=== PATIENT | female | born 1975 | race Caucasian/White ===

== ENCOUNTER 2017-05-08 15:16 | Outpatient (CLI) | payer BC ==
--- NOTE | 2017-05-08 16:52 | RAD ---
LEFT HIP 2 VIEWS: Date: 05/08/17 CLINICAL HISTORY: Left hip pain. FINDINGS: There is no fracture or dislocation of the left hip. An intrauterine device is seen overlying the pel vis. IMPRESSION: No acute osseous abnormality of the left hip. POS: SAMANTA
== END 2017-05-08 15:17 | disposition home or self-care (01) ==
LOC: SCSRAD 15:16
PROVIDERS: ATTEND Family Medicine
DX: M25.552 Pain in left hip (principal)

== ENCOUNTER 2017-05-22 09:35 | Outpatient (CLI) | payer BC ==
[2017-05-22 10:32] LABS: ALT (SGPT) 16 U/L (8-55); AST (SGOT) 22 U/L (5-34); Albumin 4.2 g/dL (3.5-5.0); Alkaline Phosphatase 38 U/L (40-150); Anion Gap 11 mmol/L (10-20); BUN (Urea Nitrogen) 15 mg/dL (7.0-18.7); Bilirubin, Total 1.4 mg/dL (0.2-1.2); Calc. Creatinine Clearance 0 mL/min (70-130); Calcium 9.2 mg/dL (7.8-10.44); Carbon Dioxide 28 mmol/L (22-29); Cardiac Risk 2.5 (Less than 4.5); Chloride 105 mmol/L (98-107); Cholesterol 180 mg/dl (< 200 Desired); Estimated GFR-MDRD 83; Globulin 3.2 g/dL (2.4-3.5); Glucose 96 mg/dL (70-105); HDL Cholesterol 72 mg/dL (>60 Neg Risk); LDL Cholesterol, Calculated 99 mg/dL; Protein, Total 7.4 g/dL (6.0-8.3); Sodium 140 mmol/L (136-145); Triglycerides 43 mg/dL (Less than 150)
[2017-05-22 11:02] LABS: Free T4 (Free Thyroxine) 1.13 ng/dL (0.70-1.48); Thyroid Stimulating Hormone 1.1621 uIU/mL (0.35-4.94)
--- NOTE | 2017-05-22 14:26 | MMO ---
MAMMOGRAM DIGITAL SCREENING BILATERAL: DATE: 05-22-17 HISTORY: 41-year-old female for routine baseline bilateral screening mammogram. COMPARISON: None available. TECHNIQUE: Digital mammographic views. Computer-aided detection (CAD) utilized. FINDINGS: The breasts are extremely dense, which lowers the sensitivity of mammography. There is no evidence of suspicious mass, suspicious calcifications, or architectural distortion. IMPRESSION: 1) BIRADS 1- Negative. 2) Recommendation: routine bilateral annual screening mammogram (unless the patient develops suspicio us clinical findings that would warrant earlier imaging follow up). [email or web address] POS: SAMANTA
[2017-05-22 14:42] LABS: Follicle Stimulating Hormone 7.59 mIU/mL (See Ranges)
[2017-05-22 14:43] LABS: Progesterone 1.4 ng/mL
[2017-05-22 14:51] LABS: Vitamin D, 25 Hydroxy 24.9 ng/ml (> 30.0)
[2017-05-22 14:52] LABS: Insulin 6.4 uU/mL (3.0-25.0); Luteinizing Hormone 14.84 mIU/mL (See Ranges)
== END 2017-05-22 09:36 | disposition home or self-care (01) ==
LOC: SCSMAMMO 09:35
PROVIDERS: ATTEND Family Medicine
DX: Z12.31 Encounter for screening mammogram for malignant neoplasm of breast (principal); R63.5 Abnormal weight gain
CPT/HCPCS: 36415; 77067; 80053; 80061; 82306; 82670; 83001; 83002; 83525; 84144; 84439; 84443; 84481

== ENCOUNTER 2018-06-11 13:00 | Outpatient (CLI) | payer BC ==
--- NOTE | 2018-06-11 14:35 | MMO ---
BILATERAL SCREENING MAMMOGRAM: HISTORY: A 43-year-old female. Routine screening mammography. COMPARISON: 05/22/2017 TECHNIQUE: CC and MLO views of both breasts are submitted for interpretation. This patient's mammogram is revie wed with the assistance of computer aided detection. FINDINGS: The breasts are composed of heterogeneously dense fibroglandular tissue, which limits the sensitivity of mammography in the detection of underlying malignancy. Bilaterally, no suspicious dominant mass, architectural distortion, or suspicious calcifications. Th ere are bilateral benign appearing calcifications. IMPRESSION: BI-RADS Category 2-Benign findings. RECOMMENDATIONS: Annual mammogram. POS: [email or web address]
== END 2018-06-11 13:01 | disposition home or self-care (01) ==
LOC: SCSMAMMO 13:00
PROVIDERS: ATTEND Family Medicine
DX: Z12.31 Encounter for screening mammogram for malignant neoplasm of breast (principal)
CPT/HCPCS: 77067

== ENCOUNTER 2019-01-14 20:22 | Emergency (ER) | payer BC | END 2019-01-14 20:55 | disposition home or self-care (01) | LOC: SCSER 20:22 | DX: I88.9 Nonspecific lymphadenitis, unspecified (principal) | CPT/HCPCS: 99283 ==